=== PATIENT | female | born 1980 ===

== ENCOUNTER 2023-10-15 08:52 | Outpatient (REF) | payer OTHER, SELFPAY | END 2023-10-15 08:53 | disposition home or self-care (01) | LOC: HO.SH 08:52 | PROVIDERS: PCP Physician Assistant; Visit Provider Physician Assistant | DX: Z01.118 Encounter for examination of ears and hearing with other abnormal findings (principal); H93.13 Tinnitus, bilateral | CPT/HCPCS: 92557; 92567 ==